=== PATIENT | female | born 1945 | race Caucasian/White ===

== ENCOUNTER 2019-11-03 17:01 | Emergency (ER) | payer MEDICARE, OTHER ==
--- NOTE | 2019-11-03 17:33 | ED ---
Complex/Multi-Sys Presentation - HPI Summary HPI Summary: Patient states she [place] walking [place] the [place] with a [place] when she developed right posterior shoulder pain rated 1/10. Patient states that her friend's is a retired physician who recommended patient take 3 Motrin tablets which she did and helped alleviate her pain. However patient presents to the ED concerned for possible [place]. She denies associated CP/pressure , SOB, vomiting, abdominal pain, or extremity pain/swelling. No recent illness. Denies history of CAD/DM/HTN/VTE. Exercises on a regular basis. Nonsmoker. - History Of Current Complaint Chief Complaint: EDShoulderClavicleInj Time Seen by Provider: 11/03/19 17:21 Hx Obtained From: Patient Onset/Duration: Still Present Timing: Hours Severity Currently: Mild Location: Pain At: - right posterir shoulder Alleviating Factor(s): Motrin Associated Signs And Symptoms: Negative: SOB, Chest Pain, Edema, Vomiting, Abdominal Pain - Allergies/Home Medications Allergies/Adverse Reactions: Allergies Allergy/AdvReac Type Severity Reaction Status Date / Time Penicillins Allergy Unknown Verified 11/03/19 17:07 Reaction Details Home Medications: Home Medications NK [No Home Medications Reported] 03/15/14 [History Confirmed 03/15/14] PMH/Surg Hx/FS Hx/Imm Hx Musculoskeletal History: Denies: Hx Osteoporosis Sensory History: Denies: Hx Legally Blind, Hx Deafness Opthamlomology History: Denies: Hx Legally Blind EENT History: Denies: Hx Deafness Infectious Disease History: No Infectious Disease History: Denies: Traveled Outside the [place] in Last 30 Days - Family History Known Family History: Negative: Hypertension - Social History Hx Tobacco Use: No Review of Systems Negative: Chest Pain Negative: Shortness Of Breath Negative: Abdominal Pain, Vomiting Positive: Arthralgia - right posterior shoulder pain. Negative: Edema All Other Systems Reviewed And Are Negative: Yes Physical Exam - Summary Physical Exam Summary: Constitutional: Well-developed, Well-nourished, Alert. (-) Distressed Skin: Warm, Dry HENT: Normocephalic; Atraumatic Eyes: Conjunctiva normal Neck: Musculoskeletal ROM normal neck. (-) JVD, (-) Stridor, (-) Tracheal deviation Cardio: Rhythm regular, rate normal, Heart sounds normal; Intact distal pulses; The pedal pulses are 2+ and symmetric. Radial pulses are 2+ and symmetric. (-) Murmur Pulmonary/Chest wall: Effort normal. (-) Respiratory distress, (-) Wheezes, (-) Rales Abd: Soft, (-) tenderness, (-) Distension, (-) Guarding, (-) Rebound Musculoskeletal: (-) Edema Lymph: (-) Cervical adenopathy Neuro: Alert, Oriented x3 Psych: Mood and affect Normal Triage Information Reviewed: Yes Vital Signs On Initial Exam: Initial Vitals Temp Pulse Resp BP Pulse Ox 99.2 F 108 16 131/104 98 11/03/19 17:04 11/03/19 17:04 11/03/19 17:04 11/03/19 17:04 11/03/19 17:04 Vital Signs Reviewed: Yes Procedures - Sedation Patient Received Moderate/Deep Sedation with Procedure: No Diagnostics - Vital Signs Vital Signs Temp Pulse Resp BP Pulse Ox 11/03/19 17:04 99.2 F 108 16 131/104 98 - Laboratory Result Diagrams: 11/03/19 17:30 11/03/19 17:30 Lab Statement: Any lab studies that have been ordered have been reviewed, and results considered in the medical decision making process. - EKG 1714 Cardiac Rate: NL EKG Rhythm: Sinus Rhythm ST Segment: Normal Ectopy: PVCs Summary of EKG Findings: EKG at 1714 shows NSR at 96bpm. PVCs. No STEMI. This EKG was reviewed and interpreted by Dr. Royal. Complex Multi-Symp Course/Dx Course Of Treatment: Patient states she was walking earlier [place] the [place] with a friend when she developed right posterior shoulder pain rated 1/ 10. Patient states that her friend's is a retired physician who recommended patient take 3 Motrin tablets which she did and helped alleviate her pain. However patient presents to the ED concerned for possible [place]. She denies associated CP/pressure, SOB, vomiting, abdominal pain, or extremity pain/ swelling. No recent illness. Denies history of CAD/DM/HTN/VTE. Exercises on a regular basis. Nonsmoker. Exam was normal. Labs showed MPV 10.5, creatinine 1.15, Glc 172. EKG at 1714 shows NSR at 96bpm. PVCs. No STEMI. Patient did not want to stay for repeat troponin. Patient discharged home, encouraged to follow up with PCP next week for reassessment and further testing as needed. Presentation unlikely due to underlying cardiovascular disease. Patient with low HEART score and exercises on a regular basis. Symptoms most consistent with muscle strain, right upper back. Pt was diagnosed with Right shoulder pain, Atypical chest pain, PVCs (premature ventricular contractions), Muscle strain; and discharged to home. - Diagnoses Provider Diagnoses: Right shoulder pain, Atypical chest pain, PVCs (premature ventricular contractions), Muscle strain - Critical Care Time Critical Care Statement: Critical care time is provided exclusive of any time spent performing procedures. Discharge ED - Sign-Out/Discharge Documenting (check all that apply): Patient Departure - dc - Discharge Plan Condition: Stable Disposition: HOME Patient Education Materials: Chest Pain (ED), Muscle Strain (ED) Referrals: Donovan Roper MD [Primary Care Provider] - Additional Instructions: Follow up with your primary care provider in 2 days. If you experience new or worsening symptoms please return to the ER. - Billing Disposition and Condition Condition: STABLE Disposition: Home - Attestation Statements Document Initiated by Lisa: Yes Documenting Scribe: Remberto Moon Provider For Whom Lisa is Documenting (Include Credential): Da Royal DO Scribe Attestation: Remberto Hamilton scribed for Da Royal DO on 11/03/19 at 1856. Scribe Documentation Reviewed: Yes Provider Attestation: The documentation as recorded by the Remberto thompson accurately reflects the service I personally performed and the decisions made by Da sher DO Status of Scrsd Document: Viewed
[2019-11-03 17:43] LABS: ABS Basophils 0.1 10^3/ul (0-0.2); ABS Eosinophils 0.2 10^3/ul (0-0.6); ABS Lymphocytes 1.7 10^3/ul (1.0-4.8); ABS Monocytes 0.8 10^3/ul (0-0.8); ABS Neutrophils 7.1 10^3/ul (1.5-7.7); Eosinophil % 2.3 %; Hematocrit 42 % (35-47); Hemoglobin 14.2 g/dL (12.0-16.0); Lymphocyte % 16.8 %; Mean Corpuscular HGB Conc 34 g/dL (31-36); Mean Corpuscular Hemoglobin 31 pg (27-31); Mean Corpuscular Volume 91 fL (80-97); Mean Platelet Volume 10.5 fL (7.4-10.4); Nucleated Red Blood Cells % 0.1; Platelet Count 234 10^3/uL (150-450); Red Blood Count 4.59 10^6 /uL (3.70-4.87); Red Cell Distribution Width 14 % (10-15); White Blood Count 9.8 10^3/uL (3.5-10.8)
[2019-11-03 17:48] LABS: INR 0.93 (0.82-1.09)
[2019-11-03 18:16] LABS: Albumin 4.3 g/dL (3.2-5.2); Albumin/Globulin Ratio 1.4 (1-3); BUN/Creatinine Ratio 17.4 (8-20); Calcium 9.5 mg/dL (8.6-10.3); EGFR African American 55.7 (>60); Magnesium 2.1 mg/dL (1.9-2.7); Total Bilirubin 0.5 mg/dL (0.2-1.0); Total Protein 7.3 g/dL (6.4-8.9)
[2019-11-03 18:17] LABS: Troponin I 0.01 ng/mL (<0.03)
[2019-11-03 18:40] VITALS: BP 157/101
== END 2019-11-03 18:47 | disposition home or self-care (01) ==
LOC: ED 17:01
DX: T14.8XXA Other injury of unspecified body region, initial encounter (principal); I49.3 Ventricular premature depolarization; M25.511 Pain in right shoulder; R07.89 Other chest pain; X58.XXXA Exposure to other specified factors, initial encounter; Y92.9 Unspecified place or not applicable; Z88.0 Allergy status to penicillin
CPT/HCPCS: 36415; 80053; 83735; 84484; 85025; 85610; 93005; 99283

== ENCOUNTER 2020-12-29 12:04 | Inpatient (IN) ==
[2020-12-29] MEDS ORDERED: Tetan/Diph/Pertus SYR(Tdap) 0.5 ML SYR(BOOSTRIX) use SYR contains LATEX IM ONE (14:43)
[2020-12-29] MEDS ORDERED: levETIRAcetam 1000MG IVPREMIX 1,000 MG/100 ML BAG IVPB ONE (14:43)
[2020-12-29] MEDS ORDERED: Ondansetron 4 mg VIAL 2 MG/ML 2 ml VIAL IV PRN (15:53)
[2020-12-29 16:01] LABS: ABS Eosinophils 0.3 10^3/ul (0-0.6); ABS Lymphocytes 1.8 10^3/ul (1.0-4.8); ABS Monocytes 0.8 10^3/ul (0-0.8); Eosinophil % 2.9 %; Hematocrit 43 % (35-47); Hemoglobin 13.8 g/dL (12.0-16.0); Lymphocyte % 18.1 %; Mean Corpuscular HGB Conc 32 g/dL (31-36); Mean Corpuscular Hemoglobin 30 pg (27-31); Mean Corpuscular Volume 94 fL (80-97); Mean Platelet Volume 10.7 fL (7.4-10.4); Nucleated Red Blood Cells % 0.1; Platelet Count 214 10^3/uL (150-450); Red Blood Count 4.56 10^6 /uL (3.70-4.87); Red Cell Distribution Width 14 % (10-15); White Blood Count 9.8 10^3/uL (3.5-10.8)
[2020-12-29 16:18] LABS: ALT 23 U/L (7-52); Albumin 4.6 g/dL (3.2-5.2); Albumin/Globulin Ratio 1.4 (1-3); Alkaline Phosphatase 56 U/L (35-149); Anion Gap 3 mmol/L (2-11); Blood Urea Nitrogen 24 mg/dL (6-24); CO2 Carbon Dioxide 25 mmol/L (22-32); Chloride 103 mmol/L (101-111); EGFR Non-African American 54.5 (>60); Globulin 3.3 g/dL (2-4); Glucose 90 mg/dL (70-100); Sodium 131 mmol/L (135-145); Total Protein 7.9 g/dL (6.4-8.9)
[2020-12-29 16:50] LABS: INR 0.97 (0.82-1.09)
[2020-12-29] MEDS ORDERED: hydrALAZINE 20 mg/ml 1 ML Vial IV IV SLOW PU PRN ×2 (17:54→17:59)
[2020-12-30] MEDS ORDERED: Polyethylene Glycol 3350 17 GM PACKET PO PRN (01:20)
[2020-12-30 05:35] LABS: Calcium 8.8 mg/dL (8.6-10.3); EGFR African American 67.6 (>60); EGFR Non-African American 55.8 (>60)
[2020-12-30 11:39] VITALS: BP 107/63
== END 2020-12-30 13:05 | disposition home or self-care (01) | DRG 551 ==
LOC: ED 12:04 → SSU 15:53
PROVIDERS: ADMIT Hospitalist; ATTEND Pediatrics